=== PATIENT | male | born 1990 | race African-American/Black ===

== ENCOUNTER 2024-12-22 09:34 | Emergency (ER) | payer OTHER, SELFPAY ==
[2024-12-22 09:45] VITALS: BP 130/66; PULSE 59; RESP 16; TEMP 36.8; O2SAT 95; BMI 28.5
--- NOTE | 2024-12-22 09:46 | DI.RAD.S_ITS ---
PROCEDURE: XR FINGER LT MIN 2V INDICATIONS: cut to distal aspect of 4th finger TECHNIQUE: AP hand, 2 views of the 4th finger(s) acquired. COMPARISON: None. FINDINGS: Bones: No fractures or dislocations. No suspicious bony lesions. Soft tissues: No suspicious soft tissue calcifications. Skin laceration, tip of 4th finger. No radiopaque foreign body. IMPRESSION: No acute bony abnormality. Dictated by: Danilo Yuan M.D. on 12/22/2024 at 10:40 Approved by: Danilo Yuan M.D. on 12/22/2024 at 10:40
--- NOTE | 2024-12-22 09:47 | ED.WOUNDLAC ---
HPI - Wound/Laceration General Chief Complaint: Wound/Laceration Stated Complaint: Cut left ring Finer. Possible stiches needed Time Seen by Provider: 12/22/24 09:42 History of Present Illness HPI narrative: 34-year-old male no significant past medical history presents for laceration to the left ring finger, he states that yesterday at around 6:00 p.m. he cut his tip of his finger on a can of beans that he was opening. He states that bleeding has been controlled, [place] into [place] ED for possible stitches. He is up-to-date on his tetanus, he denies any other injuries, not on any blood thinners Related Data Allergies Allergy/AdvReac Type Severity Reaction Status Date / Time No Known Drug Allergies Allergy Verified 12/22/24 09:52 Review of Systems Review of Systems Narrative: General: Denies fever, chills, weight loss HEENT: Denies headache, eye drainage, eye irritation, head trauma, sore throat, voice change Cardiovascular: Denies any chest pain, palpitations, tachycardia Respiratory: Denies any shortness of breath, cough, wheeze, stridor GI/: Denies any abdominal pain, nausea, vomiting, diarrhea, bright red blood per rectum, melanotic stools, urinary frequency, urinary retention, dysuria, hematuria MSK: Denies any joint pain, muscle pains, swelling Skin: Cut to distal left ring finger Neuro: Denies any headache, lightheadedness, dizziness, fainting, weakness Psych: Denies SI/HI Patient History Social History Smoking Status: Never smoker Exam Narrative Exam Narrative: General: Cooperative, well-developed, not in acute distress HEENT: Normocephalic, atraumatic, PERRLA, normal sclera, eyelids normal Neck: Active full range of motion, atraumatic Chest: Normal to inspection, negative crepitus, no overlying erythema ecchymosis Respiratory: Normal respiratory effort, not in acute respiratory distress, clear to auscultation bilaterally negative cough, wheeze, tachypnea, rhonchi, rales Cardiology: Regular rate rhythm negative gallop, murmur, rubs GI/: No tenderness to palpation, soft, non rigid, normal to inspection, exam deferred MSK: Full active range of motion in all 4 extremities, atraumatic, no tenderness to palpation of any bony prominences, scab noted to the distal aspect of the left ring finger, otherwise neurovascularly intact no foreign body not actively bleeding Skin: No rashes or lesions noted Neuro: Alert awake oriented x3, moves all 4 extremities spontaneously, cranial nerves intact, able to answer all questions appropriately follows commands appropriately Psych: Cooperative, negative suicidal or homicidal ideations Initial Vital Signs Initial Vital Signs: Vital Signs Temperature 98.3 F 12/22/24 09:45 Pulse Rate 59 L 12/22/24 09:45 Respiratory Rate 16 12/22/24 09:45 Blood Pressure 130/66 12/22/24 09:45 Pulse Oximetry 95 12/22/24 09:45 Oxygen Delivery Method Room Air 12/22/24 09:45 Course Orders Ordered: ED Orders 12/22/24 09:46 XR finger LT min 2V Stat Vital Signs Vital signs: Vital Signs - 8 hr 12/22/24 09:45 Temperature 98.3 F Pulse Rate 59 L Respiratory Rate 16 Blood Pressure 130/66 Pulse Oximetry 95 Oxygen Delivery Method Room Air MDM - Wound/Laceration Differential Diagnosis Differential diagnosis: Likely laceration, abrasion and other (Fracture) Imaging Data Extremity x-ray #1: My Impression: No bony involvement at the tip of ring finger Radiologist's Impression: [address] [address] XRay Report Signed Patient: Archie Norman MR#: [id number] : 1990 Acct:[id number] Age/Sex: 34 / M Date of Service: 12/22/24 Loc: ED Accession Number: [id number] Procedure: XR finger LT min 2V Ordering Provider: Rocky Garg D.O. PROCEDURE: XR FINGER LT MIN 2V INDICATIONS: cut to distal aspect of 4th finger TECHNIQUE: AP hand, 2 views of the 4th finger(s) acquired. COMPARISON: None. FINDINGS: Bones: No fractures or dislocations. No suspicious bony lesions. Soft tissues: No suspicious soft tissue calcifications. Skin laceration, tip of 4th finger. No radiopaque foreign body. IMPRESSION: No acute bony abnormality. [facility] Narrative Medical decision making narrative: 34-year-old male without any significant past medical history presenting for laceration to the tip of left ring finger, he states he cut it at around 6:00 p.m. yesterday on a can of beans, he states that bleeding was controlled [place] come into the ED for possible stitches, finger, not actively bleeding, x-ray without any signs of bony involvement, given length of laceration primary closure not recommended at this time, patient was instructed to follow up with primary care in outpatient setting he verbalized understanding of this and agrees to being discharged home with outpatient follow up Discharge Plan Departure Patient Disposition: Home Clinical Impression: Laceration of finger, ring Instructions: DI for Minor Laceration Activity Restrictions/Additional Instructions: Please follow up with the primary care doctor Please read the discharge instructions sheet carefully and bring all papers to all doctor follow-up visits, as it may contain information that your doctor may want to see. Disease processes change and evolve, if your symptoms worsen or if you develop any new symptoms that are concerning to you please return for evaluation. Your evaluation today does not show any evidence of any life-threatening/serious illnesses requiring admission to the hospital or surgery. Please follow-up with your doctor for re-evaluation in approximately 1 day. Seek immediate medical attention for any worrisome symptoms. *If you do not have a primary care provider please contact the [facility] Resource line at [phone]. They will ask some questions about your medical history and help get you set up with a doctor in the community. Referrals: ProviderIsaac [Primary Care Provider, Family Practice] Stand Alone Forms: Patient Portal/API
--- NOTE | 2024-12-22 10:19 | PC.NURSE ---
Finger wound washed and dressed. Education given to pt about how to avoid infection and monitor for potentiol infection
== END 2024-12-22 10:25 | disposition home or self-care (01) ==
PROVIDERS: Emergency Provider Student in an Organized Health Care Education/Training Program
DX: S61.215A Laceration without foreign body of left ring finger without damage to nail, initial encounter (principal); W26.8XXA Contact with other sharp object(s), not elsewhere classified, initial encounter
CPT/HCPCS: 73140; 99283